=== PATIENT | male | born 1950 | race Two or more races ===

== ENCOUNTER → 2025-06-09 | Outpatient (CLI) | payer BC, SELFPAY ==
[2025-06-09 16:47] LABS: Thyroid Stimulating Hormone 1.67 uIU/mL (0.55-4.78)
[2025-06-20 07:05] LABS: ANA Screen, IFA NEGATIVE (NEGATIVE)
== END | disposition home or self-care (01) ==
LOC: COPL 14:44
PROVIDERS: PCP Internal Medicine; Referring Provider Specialist; Visit Provider Specialist
DX: R13.10 Dysphagia, unspecified (principal); R14.0 Abdominal distension (gaseous)
CPT/HCPCS: 36415; 84443; 86038